=== PATIENT | female | born 1995 | race Caucasian/White ===

== ENCOUNTER 2020-11-10 09:20 | Inpatient (IN) ==
[2020-11-10] MEDS ORDERED: LACTATED RINGER'S 1,000 ML IV PRN (09:53)
[2020-11-10] MEDS ORDERED: OXYTOCIN 30 UNITS/500 ML BAG IV PRN ×2 (09:53→11:05)
--- NOTE | 2020-11-10 09:56 | History & Physical Report ---
Date of Service November 10, 2020 Assessment & Plan (1) Active labor at term: (2) Need for rhogam due to Rh negative mother: (3) Hypothyroidism: admit, iv, labs. will try to obtain epidural. pt aware that may not have time. suspect based on exam variables due to descent. bulging membranes. fhts categ 2. History of Present Illness Chief Complaint: labor Primary Care Provider: Jason Barrientos MD 25yo at 38+wks egfreddie presents to L&D in active labor. Contractions reguar and painful, breathing with them. No rom. No vb. +FM. PNC c/b 1. Rh neg, had rhogam, eval pp 2. hypothyroid on meds. PNL Rh neg, RI, GBS neg OBH: G1 GYNH: nl paps, no stds Allergies Allergy/AdvReac Type Severity Reaction Status Date / Time No Known Drug Allergies Allergy Verified 11/09/20 14:54 Home Medications Medication Instructions Recorded Confirmed Type [id number] fum-folic ac-om3 1 cap PO DAILY 12/13/19 11/10/20 History citalopram 10 mg tablet 30 mg PO DAILY tab 04/15/20 11/10/20 History breast pump #1 ea 10/21/20 11/09/20 Rx levothyroxine 100 mcg tablet 100 mcg PO DAILY #30 tab 11/05/20 11/10/20 Rx Patient History Medical History Abnormal serum thyroid stimulating hormone (TSH) level Anxiety Encounter for anatomic survey Hx of varicella Hypothyroidism No pertinent past medical history Vaginal bleeding Surgical History S/P wisdom tooth extraction Family History Mother Benign breast disease Hemiplegic migraine Grandmother (Maternal) Hypothyroidism Aunt Hypothyroidism Denies family history of Ovarian cancer Breast cancer Colorectal cancer Social History Smoking Status: Never smoker Hx Alcohol Use: No (social) Hx Substance Use: No Preferred Language: Malawian marital status: marital status details: Mp Roper (28) [phone] Current Living Situation: Spouse Current Living Situation Comment: lives with spouse, 1 dog current occupational status: employed 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 [employer] Feels Safe at Home: Yes Physical Exam Constitutional: WD/WN, vitals as above Gastrointestinal (Abdomen): soft gravid nt Musculoskeletal: no edema Neurologic: grossly normal Psychiatric: A+Ox3, euthymic affect Genitourinary: Manual OB Exam: + cervical dilation (bulging membranes) 7 cm, + cervical effacement 100% and + station + 1 OB Exam Monitor Tracing: + external FHT monitor used (140 mod variability), + external uterine monitor used (q2-4), + category II, + normal FHT variability and + variable decelerations Results & Data ([facility]) Vital Signs (Past 12 Hours) Vital Signs Temp Pulse Resp BP 11/10/20 09:29 97.9 F 74 20 124/76 Coding Level of Care Code None Diagnoses Active labor at term Need for rhogam due to Rh negative mother Z29.13 Hypothyroidism E03.9
[2020-11-10] MEDS ORDERED: fentaNYL citrate 100 MCG/2 ML VIAL ONE (10:14)
[2020-11-10] MEDS ORDERED: SODIUM CHLORIDE 0.9% INJ 10 ML VIAL ONE (10:14)
[2020-11-10] MEDS ORDERED: ePHEDrine sulfate 50 MG/ML AMP ONE (10:14)
[2020-11-10] MEDS ORDERED: BUPIVACAINE 0.25% 30 ML VIAL ONE (10:14)
[2020-11-10] MEDS ORDERED: fentaNYL 2MCG/ML ROPIVACAINE 1.25MG/ML 100 ML BAG EPI ONE (10:15)
[2020-11-10 10:22] LABS: Hematocrit (blood only) 38.9 % (37-47); Mean Corpuscular Hemoglobin 31.8 pg (25-34); Mean Corpuscular Volume 88.4 fL (80-100); Platelet Count 184 K/uL (130-400); RDW Coefficient of Variation 12.7 % (11.5-14.5); RDW Standard Deviation 40.5 fL (36.4-46.3); White Blood Count 11.88 K/uL (4.8-10.8)
[2020-11-10] MEDS ORDERED: LIDOCAINE HCL 1% 20 ML VIAL ONE (10:37)
[2020-11-10] MEDS ORDERED: ACETAMINOPHEN 325 MG TAB PO PRN (11:05)
[2020-11-10] MEDS ORDERED: oxyCODONE/ACETAMINOPHEN 5mg/325mg TAB PO PRN (11:05)
--- NOTE | 2020-11-10 11:16 | Delivery Summary ---
Vaginal Delivery Summary Date of Service November 10, 2020 The patient dilated to complete and pushed to deliver a viable female Apg ars 7 and 9 via over 2nd degree perineal laceration. Mouth and nose bulb suctioned at perineum. Loose nuchal cord x 1 reduced. Shoulders and body delivered with ease. was vigorous and crying at . Cord clamped at 30 seconds of life and infant to maternal abdomen where the cord was then doubly clamped and cut. Placenta delivered spontaneously and intact, three-vessel cord. Hemostasis achieved with dilute pitocin and uterine massage. Laceration repaired in usual fashion with 3-0 vicryl after 1% local lidocaine anesthesia. Cervix and sulci intact. EBL 300 cc. Mother and baby stable in recovery. Vaginal Delivery Summary and 2nd Degree LAC [facility] Vaginal Delivery Charge Vaginal Delivery Codes: 10808 global code for the antepartum, delivery, and post- Delivery Type Details: and 2nd Degree LAC
[2020-11-10] MEDS ORDERED: OXYTOCIN 20 UNITS in LACTATED RINGER'S 1,000 ML IV SCH (11:30)
[2020-11-10] MEDS ORDERED: CITALOPRAM 20 MG TAB PO ONE (11:30)
[2020-11-10] MEDS ORDERED: HYDROCORTISONE ACETATE 25 MG SUPP PR PRN (11:58)
[2020-11-10] MEDS ORDERED: BENZOCAINE 20% AER SPR 82.5 GM CAN EXT PRN (11:58)
[2020-11-10] MEDS ORDERED: SUPERCREAM 0.870% 15 GM JAR EXT PRN (11:58)
[2020-11-10] MEDS ORDERED: DIPHTHERIA/TETANUS/PERTUSSIS 0.5 ML SYR/VIAL IM ONE (11:58)
[2020-11-10] MEDS: IBUPROFEN 600 MG TAB PO PRN ×2 (14:12→21:14)
[2020-11-10] MEDS: DOCUSATE SODIUM 100 MG CAP PO SCH (21:13)
[2020-11-11 06:18] LABS: Hemoglobin 11.8 g/dL (12.0-16.0)
--- NOTE | 2020-11-11 06:55 | Obstetrical Progress Note ---
Date of Service <Tomer Liriano MD - Last Filed: 11/11/20 07:46> November 11, 2020 Assessment & Plan <Tomer Liriano MD - Last Filed: 11/11/20 07:46> (1) : A/P: Cele Benson is a 25 y/o female on PPD#1 following at 38+5 weeks. * Patient feels well today; eating well, voiding well, ambulating well * Pain well-controlled with ibuprofen 600mg q4h prn * Continue levothyroxine 100mcg PO qd * Continue citalopram 30mg PO qAM * PNL: Rh neg, RI, GBS neg, COVID neg * Baby is Rh neg - no need for further Rhogam doses * Routine care: OOB, ambulation, diet progression as tolerated * After discharge, will have six-week follow-up with Dr. New (2) Need for rhogam due to Rh negative mother: Subjective <Tomer Liriano MD - Last Filed: 11/11/20 07:46> Cele Benson is a 25 y/o female with hypothyroidism and anxiety on PPD#1 following at 38+5 weeks. She reports feeling well overall this morning. Mild abdominal cramping and 2/10 pain well managed on analgesics. Voiding well. Tolerating meals overnight without difficulty. Patient has been able to ambulate some. Has persistent lochia with some improvement this morning. Currently . Physical Exam <Tomer Liriano MD - Last Filed: 11/11/20 07:46> General: alert, oriented, no acute distress Cardiac: regular rate and rhythm, no murmurs appreciated Respiratory: lungs clear to auscultation bilaterally a/p, no wheezes/rales/rhon chi, no increased work of breathing, symmetrical chest rise, no respiratory distress Abdomen: soft, minimally tender, nondistended, bowel sounds present Uterus: uterine fundus firm, palpable at umbilicus Lower extremities: no lower extremity edema or swelling, no deep calf pain, Himanshu's negative bilaterally Results & Data ([facility]) <Tomer Liriano MD - Last Filed: 11/11/20 07:46> Vital Signs (Past 12 Hours) Vital Signs Temp Pulse Resp BP Pulse Ox 11/11/20 05:30 36.7 C 76 18 99/60 L 98 11/11/20 01:15 36.8 C 76 18 99/59 L 99 11/10/20 19:21 36.9 C 78 18 100/55 L 98 <Padmaja New MD, FACOG - Last Filed: 11/11/20 08:06> Co-Signing Physician Notes Resident Physician Supervision Note: I was present with Dr. George during the history and exam. I discussed the case with the resident and agree with the findings and plan as documented in the note. Any exceptions or clarifications are listed here: pt doing well, eating, voiding, ambulating without issue. bleeding ok. vss, ff 2 down nt, ext nt calves. ppd #1 s/p , breast, rh neg, baby rh neg, no rhogam needed, routine care. Documented By: Padmaja New MD, FACOG Resident Activity Tracking <Tomer Liriano MD - Last Filed: 11/11/20 07:46> Resident Involvement: Resident Care Provided Care Provided: OB Delivery
[2020-11-11] MEDS: LEVOTHYROXINE SODIUM 100 MCG TABLET PO SCH (07:12)
[2020-11-11] MEDS: IBUPROFEN 600 MG TAB PO PRN ×2 (07:13→17:57)
[2020-11-11] MEDS: DOCUSATE SODIUM 100 MG CAP PO SCH ×2 (09:29→20:13)
[2020-11-11] MEDS: CITALOPRAM 20 MG TAB PO SCH (09:29)
[2020-11-12] MEDS: IBUPROFEN 600 MG TAB PO PRN ×3 (00:04→12:03)
--- NOTE | 2020-11-12 06:21 | Obstetrical Progress Note ---
Date of Service <Tomer Liriano MD - Last Filed: 11/12/20 07:10> November 12, 2020 Assessment & Plan <Tomer Liriano MD - Last Filed: 11/12/20 07:10> (1) : A/P: Clee Benson is a 25 y/o female on PPD#2 following at 38+5 weeks. * Patient feels well today; eating well, voiding well, ambulating well * Pain well-controlled with ibuprofen 600mg q4h prn * Continue levothyroxine 100mcg PO qd * Continue citalopram 30mg PO qAM * PNL: Rh neg, RI, GBS neg, COVID neg * Baby is Rh neg - no need for further Rhogam doses * Routine care: OOB, ambulation, diet progression as tolerated * Interested in the progesterone-only pill for contraception, which she has previously been on * Discharge home today; discharge instructions reviewed * After discharge, will have six-week follow-up with Dr. New (2) Need for rhogam due to Rh negative mother: Subjective <Tomer Liriano MD - Last Filed: 11/12/20 07:10> Cele Benson is a 25 y/o female on PPD#2 following at 38+5 weeks. She reports feeling well overall this morning. Minimal abdominal cramping and 3/10 pain well managed on analgesics. Voiding well. Tolerating meals overnight witho ut difficulty. Patient has been able to ambulate some. Has persistent lochia with some improvement this morning. Currently . Review of Systems Denies fever or chills. Denies shortness of breath or cough. Denies chest pain. Denies breast pain. Denies dysuria. Denies leg pain or leg swelling. Denies headache or changes in vision. Physical Exam <Tomer Liriano MD - Last Filed: 11/12/20 07:10> General: alert, oriented, no acute distress Cardiac: regular rate and rhythm, no murmurs appreciated Respiratory: lungs clear to auscultation bilaterally a/p, no wheezes/rales/rhonchi, no increased work of breathing, symmetrical chest rise, no respiratory distress Abdomen: soft, minimally tender, nondistended, bowel sounds present Uterus: uterine fundus firm, palpable 3cm below umbilicus Lower extremities: no lower extremity edema or swelling, no deep calf pain, Himanshu's negative bilaterally Results & Data ([facility]) <Tomer Liriano MD - Last Filed: 11/12/20 07:10> Vital Signs (Past 12 Hours) Vital Signs Temp Pulse Resp BP Pulse Ox 11/11/20 23:55 36.5 C 66 16 114/70 99 11/11/20 19:43 36.7 C 68 16 98/63 L 98 <Yvette Parker MD - Last Filed: 11/12/20 07:14> Co-Signing Physician Notes Resident Physician Supervision Note: I interviewed and examined the patient. Discussed with Dr. Newberry and agree with findings and plan as documented in the note. Any exceptions or clarifications are listed here: [ ] Documented By: Yvette Parker MD, FACOG Resident Activity Tracking <Tomer Liriano MD - Last Filed: 11/12/20 07:10> Resident Involvement: Resident Care Provided Care Provided: OB Delivery
[2020-11-12] MEDS: LEVOTHYROXINE SODIUM 100 MCG TABLET PO SCH (07:43)
[2020-11-12] MEDS: DOCUSATE SODIUM 100 MG CAP PO SCH (08:14)
[2020-11-12] MEDS: CITALOPRAM 20 MG TAB PO SCH (08:14)
== END 2020-11-12 12:36 | disposition home or self-care (01) | DRG 807 ==
LOC: OPB 09:20 → 4S1 09:20 → 4S2 18:16

== ENCOUNTER 2024-04-29 05:33 | Inpatient (IN) ==
--- NOTE | 2024-04-25 13:47 | Anesthesiology Consultation ---
Date of Service April 25, 2024 Assessment & Plan (1) Encounter for pre-operative examination: Infectious disease screening: Per assessment on 04/25/24: No known recent infectious disease contacts or current infectious disease symptoms. Chart Review Chart Review: entry clerk initiated History Surgery Operation Date: 04/29/24 09:00 Proposed Procedures p Section (Delivery of the Baby Through Abdominal Incision - Eloisa Dominguez DO Height/Weight Height: 5 ft 6 in Weight: 95.708 kg Allergies Allergy/AdvReac Type Severity Reaction Status Date / Time No Known Drug Allergies Allergy Verified 04/25/24 13:10 Medications Home Medications Medication Instructions Recorded Confirmed Last Taken citalopram 10 mg tablet 10 mg PO QAM 04/15/20 04/25/24 04/12/24 prenat.vits,gayatri,qqf-xamj-iishx 1 tab PO QPM 11/10/20 04/25/24 04/11/24 folic acid 1 tab PO QPM 10/20/23 04/25/24 04/11/24 aspirin 81 mg tablet,delayed 81 mg PO QPM 01/05/24 04/25/24 04/11/24 release (Adult Low Dose Aspirin) ferrous sulfate 325 mg (65 mg 325 mg PO QAM 03/15/24 04/25/24 04/12/24 iron) tablet (FeroSul) breast pump #1 ea 04/19/24 04/24/24 Unknown citalopram 20 mg tablet 20 mg PO QAM 04/25/24 04/25/24 Unknown levothyroxine 112 mcg tablet 112 mcg PO QAM 04/25/24 04/25/24 Unknown Past Medical History Medical History Anxiety Hemiplegic migraine Hx, no current issues History of anemia History of asthma Hypothyroidism PCOS (polycystic ovarian syndrome) Past Family History Family History Mother Hemiplegic migraine Benign breast disease Grandmother (Maternal) Hypothyroidism Breast cancer Aunt Hypothyroidism Duodenal cancer Denies family history of Ovarian cancer Colorectal cancer Past Surgical History Surgical History S/P wisdom tooth extraction Social History Smoking Status: Never smoker Do You Dip or Chew Tobacco: No Hx Alcohol Use: Yes (not while , only socially) Hx Substance Use: No substance use type: does not use Lab Results Anesthesia Preop Results Results Anesthesia Widget: Hgb 10.5 g/dl (12.0-16.0) L 03/01/24 Hct 31.3 % (37.0-47.0) L 03/01/24 TSH 0.812 uIu/ml (0.300-4.500) 04/05/24 Free T4 0.72 ng/dl (0.61-1.60) 03/01/24 Urine Color Yellow 03/01/24 Urine Appearance Clear (Clear) 03/01/24 Urine pH 8.0 (4.5-7.5) H 03/01/24 Urine Specific Brethren 1.009 (1.000-1.030) 03/01/24 Urine Protein Negative (Negative) 03/01/24 Urine Glucose (UA) Negative (Negative) 03/01/24 Urine Ketones Negative (Negative) 03/01/24 Urine Blood Negative (Negative) 03/01/24 Urine Nitrite Negative (Negative) 03/01/24 Urine Bilirubin Negative (Negative) 03/01/24 Urine Urobilinogen Negative (Negative) 03/01/24 Urine Leukocyte Esterase Negative (Negative) 03/01/24 Antibody Screen NEGATIVE 03/01/24 Testing Laboratory Results Urine culture (03/01/24): no growth
[2024-04-29] MEDS: LACTATED RINGER'S 500 ML IV ONE (06:40)
--- NOTE | 2024-04-29 07:27 | History & Physical Report ---
Date of Service April 29, 2024 Assessment & Plan (1) Dichorionic diamniotic twin gestation: Plan: Reviewed delivery planning with patient: offered attempt at vaginal delivery vs primary section. Patient elected to undergo section. She was counseled on risks/benefits/alternatives of both section and vaginal delivery. Informed consent obtained. Admission and Anticipated Discharge Date Admission Date: April 29, 2024 History of Present Illness Chief Complaint: twins, IUGR Primary Care Provider: Jason Barrientos MD 29yo @ 37 11/05, here for delivery. 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 HARVINDER GUERRERO AND DR. SONJA MOSS ASSIST. Allergies Allergy/AdvReac Type Severity Reaction Status Date / Time No Known Drug Allergies Allergy Verified 04/25/24 13:10 Home Medications Medication Instructions Recorded Confirmed Type citalopram 10 mg tablet 10 mg PO QAM 04/15/20 04/29/24 History prenat.vits,gayatri,[id number] 1 tab PO QPM 11/10/20 04/29/24 History folic acid 1 tab PO QPM 10/20/23 04/29/24 History aspirin 81 mg tablet,delayed 81 mg PO QPM 01/05/24 04/29/24 History release (Adult Low Dose Aspirin) ferrous sulfate 325 mg (65 mg 325 mg PO QAM 03/15/24 04/29/24 History iron) tablet (FeroSul) breast pump #1 ea 04/19/24 04/24/24 Rx citalopram 20 mg tablet 20 mg PO QAM 04/25/24 04/29/24 History levothyroxine 112 mcg tablet 112 mcg PO QAM 04/25/24 04/29/24 History Patient History Medical History Anxiety Hemiplegic migraine Hx, no current issues History of anemia History of asthma Hypothyroidism PCOS (polycystic ovarian syndrome) Surgical History S/P wisdom tooth extraction Family History Mother Hemiplegic migraine Benign breast disease Grandmother (Maternal) Hypothyroidism Breast cancer Aunt Hypothyroidism Duodenal cancer Denies family history of Ovarian cancer Colorectal cancer Social History (Updated 03/29/24 @ 11:37 by Cristina Maurice RN) Smoking Status: Never smoker Second Hand Exposure: No; Do You Dip or Chew Tobacco: No; Tobacco Cessation Education Requested by Patient: No Hx Alcohol Use: Yes (not while , only socially) Hx Substance Use: No Preferred Language: Syriac Communication Ability: Effective Miller Supervisor Required: No Beliefs That Will Affect Care: None marital status: marital status details: Mp Benson (28) [phone] Current Living Situation: Spouse and Family Current Living Situation Comment: and daughter current occupational status: employed 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 [employer] Other Information That Helps Us Care for You: No Feels Safe at Home: Yes Safety Concerns: Feels Safe At This Time Assistive Devices: None Review of Systems All systems reviewed & are unremarkable except as noted in HPI & below Physical Exam Physical Exam: FHT cat 1 [place] Q 2-4 min Limited bedside US: baby A cephalic, B breech Constitutional: WD/WN, vitals as above Respiratory: normal respiratory effort, lungs clear to auscultation no respiratory distress Cardiovascular: Rate/Rhythm: regular rate and regular rhythm Gastrointestinal (Abdomen): Inspection/Auscultation: abdomen normal to inspect ion Percussion/Palpation: abdomen soft; abdomen nontender Gravid. No s/s chorio or abruption. Skin: no rashes, warm and dry Psychiatric: A+Ox3, euthymic affect Results & Data Vital Signs (Past 12 Hours) Vital Signs Temp Pulse Resp BP 04/29/24 05:50 36.8 C 92 H 18 109/67 04/29/24 05:44 92 H 109/67 Coding Level of Care Code None Diagnoses Dichorionic diamniotic twin gestation O30.049
[2024-04-29] MEDS ORDERED: LACTATED RINGER'S 1,000 ML IV SCH ×2 (07:45→11:58)
[2024-04-29] MEDS ORDERED: MoRPHine SULFATE PF 1 MG/ML 10 ML AMP/VIAL ONE (07:47)
[2024-04-29] MEDS ORDERED: fentaNYL citrate PF 100 MCG/2 ML VIAL ONE (07:47)
[2024-04-29 08:08] LABS: Basophils # (auto) 0.04 K/uL (0.00-0.20); Basophils % (auto) 0.6 %; Eosinophils # (auto) 0.04 K/uL (0.00-0.50); Eosinophils % (auto) 0.6 %; Hematocrit (blood only) 35.1 % (37.0-47.0); Hemoglobin 12.1 g/dl (12.0-16.0); Immature Granulocytes # (auto) 0.05 K/uL (0.01-0.20); Immature Granulocytes % (auto) 0.7 %; Lymphocytes % (auto) 32.4 %; Mean Corpuscular Hemoglobin 29.8 pg (25.0-34.0); Mean Corpuscular Hgb Conc 34.5 g/dL (32.0-36.0); Mean Corpuscular Volume 86.5 fL (80.0-100.0); Monocytes # (auto) 0.38 K/uL (0.11-0.59); Monocytes % (auto) 5.6 %; Neutrophils # (auto) 4.07 K/uL (1.40-6.50); Neutrophils % (auto) 60.1 %; Platelet Count 153 K/uL (130-400); RDW Coefficient of Variation 14.8 % (11.5-14.5); Red Blood Count 4.06 M/uL (4.20-5.40); White Blood Count 6.78 K/ul (4.8-10.8)
[2024-04-29] MEDS ORDERED: LACTATED RINGER'S 500 ML IV PRN (08:09)
[2024-04-29] MEDS ORDERED: NALBUPHINE HCL 5 MG in SYRINGE 0 ML IV PRN (08:09)
[2024-04-29] MEDS ORDERED: ACETAMINOPHEN 1,000 MG/100 ML VIAL IV PRN (08:09)
[2024-04-29] MEDS ORDERED: NALOXONE HCL 1 MG in SODIUM CHLORIDE 0.9% 1,000 ML IV PRN (08:09)
[2024-04-29] MEDS ORDERED: ePHEDrine sulfate 50 MG/ML AMP IV PRN (08:09)
[2024-04-29] MEDS ORDERED: NALOXONE HCL 0.08 MG in SYRINGE 1.8 ML IV PRN (08:09)
[2024-04-29] MEDS ORDERED: NALOXONE HCL 0.4 MG/1 ML VIAL/CARP IV PRN (08:09)
[2024-04-29] MEDS ORDERED: diphenhydrAMINE 50 MG/ML VIAL IV PRN (08:09)
[2024-04-29] MEDS ORDERED: HYDROmorphone INJ 0.5 MG/0.5 ML SYR IV PRN (08:09)
[2024-04-29] MEDS ORDERED: ONDANSETRON INJ 2 MG/ML 2 ML VIAL IV PRN (08:09)
[2024-04-29] MEDS ORDERED: PROMETHAZINE HCL 6.25 MG in SODIUM CHLORIDE 0.9% 50 ML IV PRN (08:09)
[2024-04-29] MEDS ORDERED: DC INTRASPINAL MORPHINE SCH (08:15)
[2024-04-29] MEDS: CITRIC ACID/SODIUM CITRATE 15 ML UDC PO SCH (08:15)
[2024-04-29] MEDS ORDERED: NO NARCOTICS OR SEDATIVES SCH (08:15)
[2024-04-29] MEDS: ceFAZolin 2000MG 2,000 MG/15 ML SYR IV SCH (08:18)
[2024-04-29 09:27] LABS: Base Excess Cord Venous Blood 0.3 mEq/L (-7.7-1.9); Cord Venous Blood HCO3 23 mmol/L (18.4-26.8); Cord Venous Blood PCO2 32 mmHg (30.4-57.2); Cord Venous Blood PO2 27 mmHg (14.1-43.3); Cord Venous Blood pH 7.47 (7.20-7.44); O2 Saturation Cord Venous Bld 62.2 % (<68)
[2024-04-29 09:28] LABS: Base Excess Cord Venous Blood 0.1 mEq/L (-7.7-1.9); Cord Venous Blood HCO3 24 mmol/L (18.4-26.8); Cord Venous Blood PCO2 34 mmHg (30.4-57.2); Cord Venous Blood PO2 < 20 mmHg (14.1-43.3); Cord Venous Blood pH 7.45 (7.20-7.44); O2 Saturation Cord Venous Bld < 60.0 % (<68)
[2024-04-29 09:32] LABS: Base Excess Cord Arterial Bld -3.3 mEq/L (-9-1.8); CO2 Cord Arterial Blood 40 mmHg (39.1-73.5); HCO3 Cord Arterial Blood 22 mmol/L (19.7-28.5); Oxygen Sat Cord Arterial Blood < 60.0 % (<60); PO2 Cord Arterial Blood < 20 mmHg (4.1-31.7); pH Cord Arterial Blood 7.35 (7.1-7.38)
--- NOTE | 2024-04-29 09:49 | Operative Report ---
Post Operative Report Pre & Post Diagnosis Operation Date: 04/29/24 07:30 Pre-Op Diagnosis: Dichorionic/Dichorionic Twins;IUGR;Desires Caesarean Section Post-Op Diagnosis: Same; Delivery of live male ( Twin A ) at 0842 and live male (Twin B ) at 0844 I identified the patient and participated in the time-out.: Yes Procedure Operation Date: 04/29/24 07:30 Actual Procedures p Primary Low Transverse Section (Delivery of the Baby Through Abdominal Incision) - Eloisa Dominguez DO Surgeon Eloisa Dominguez DO Despatching And Receiving Clerk Alayna Villalobos MD Quantitative Blood Loss (QBL) 672 Findings Consistent with Post-Op Diagnosis Viable male twins, both babies with 8/8 APGARS, weights pending please see nursery records. Specimens placenta, cord blood, cord gas. Baby A - one clip Baby B - two clips Drains ewing clear yellow Anesthesia Type Spinal Complications none Disposition Accompanied Patient To Recovery: Yes Disposition: Recovery Room Indications 29yo @ 37 11/05, di/di twins, IUGR, request for section Description of Procedure The patient was seen in her labor and delivery room, risks benefits and alternatives to surgery were reviewed. Informed consent obtained. Questions were answered. She was taken to the operating room, spinal anesthesia was administered. She was then prepared and draped in the usual sterile fashion in the supine position with a leftward tilt. Timeout was confirmed. A Pfannenstiel skin incision was made with a scalpel, and carried through to the underlying layer of fascia. Fascia was nicked at midline, and this incision was extended bilaterally. The superior aspect of the fascial incision was grasped with Mayra clamps x2, elevated off the underlying rectus abdominis muscles, and dissected sharply and bluntly. In similar fashion, the inferior aspect of the fascial incision was dissected. The rectus abdominis muscles were , and the peritoneum was entered bluntly digitally. This was extended bilaterally. The bladder flap was taken down carefully using Metzenbaum scissors. Using a new scalpel, a low transverse uterine incision was created. Clear amniotic fluid noted. Infant A was delivered from a cephalic presentation. Nuchal x 1, easily reduced. The head delivered, followed by shoulders and body. Spontaneous cry on the field. The cord was doubly clamped and cut, and the was handed off to the waiting asp net software developer. A segment was retained for cord gases. Cord blood was obtained. B was then delivered from a cephalic presentation, meconium-stained amniotic fluid. Nuchal x 1, easily reduced. The head delivered, followed by shoulders and body. Spontaneous cry on the field. The cord was doubly clamped and cut, and the infant was handed off to the waiting asp net software developer. A segment was retained for cord gases. Cord blood was obtained. The placenta was delivered spontaneously intact. The uterus was exteriorized, and cleared of all clots and debris. The hysterotomy incision was reapproximated using 0 Vicryl in a running locked stitch. A second layer of the same suture was used to imbricate the incision. Posterior uterus was evaluated and normal. The uterus was returned to the abdomen, and gutters were cleared of clots and debris. Excellent hemostasis was observed. The fascial incision was reapproximated using 0 Vicryl in a running stitch. The subcutaneous tissue was irrigated, and reapproximated using 2-0 plain gut in a running stitch. The skin was reapproximated using 4-0 Vicryl in a running subcuticular stitch. Steri-Strips and a bandage were applied. The patient tolerated the procedure well, and will be taken to the recovery area in stable and good condition. I attest to the content of the Intraoperative Record and any orders documented therein. Any exceptions are noted below. OB Procedure Charges 72598
[2024-04-29] MEDS ORDERED: PHENYLEPHRINE HCL 25 MG/250 ML NSS IV ONE (10:05)
[2024-04-29] MEDS ORDERED: KETOROLAC 30 MG/ML VIAL ONE (10:05)
[2024-04-29] MEDS ORDERED: ONDANSETRON INJ 2 MG/ML 2 ML VIAL ONE (10:05)
[2024-04-29] MEDS ORDERED: OXYTOCIN 10 UNITS/ML VIAL ONE (10:05)
--- NOTE | 2024-04-29 11:24 | Anesthesiology Progress Note ---
Date of Service April 29, 2024 Anesthesia Post Procedure Vital Signs Vital Signs: Temp Pulse Resp BP Pulse Ox 04/29/24 11:19 100 04/29/24 11:19 61 04/29/24 11:14 100 04/29/24 11:14 66 04/29/24 11:14 107/63 04/29/24 11:09 100 04/29/24 11:09 65 04/29/24 11:04 100 04/29/24 11:04 63 04/29/24 10:59 100 04/29/24 10:59 64 04/29/24 10:54 100 04/29/24 10:54 58 L 04/29/24 10:54 63 04/29/24 10:54 98/61 L 04/29/24 10:49 100 04/29/24 10:49 70 04/29/24 10:44 100 04/29/24 10:44 61 04/29/24 10:44 65 04/29/24 10:44 99/58 L 04/29/24 10:39 99 04/29/24 10:39 70 04/29/24 10:35 97.9 F 64 16 97/56 L 99 04/29/24 10:34 99 04/29/24 10:34 64 04/29/24 10:34 97/56 L 04/29/24 10:29 100 04/29/24 10:29 63 04/29/24 10:25 97.7 F 73 16 101/56 L 98 04/29/24 10:24 99 04/29/24 10:24 74 04/29/24 10:24 67 04/29/24 10:24 101/56 L 04/29/24 10:19 98 04/29/24 10:19 75 04/29/24 10:15 72 16 103/50 L 98 04/29/24 10:14 99 04/29/24 10:14 69 04/29/24 10:14 67 04/29/24 10:14 103/50 L 04/29/24 10:09 100 04/29/24 10:09 75 04/29/24 10:05 70 16 109/49 L 97 04/29/24 10:04 100 04/29/24 10:04 73 04/29/24 10:04 100/49 L 04/29/24 09:59 100 04/29/24 09:59 69 04/29/24 09:55 97.9 F 75 16 105/53 L 97 04/29/24 09:54 100 04/29/24 09:54 81 04/29/24 09:54 73 04/29/24 09:54 105/53 L 04/29/24 09:49 100 04/29/24 09:49 68 04/29/24 09:45 80 16 108/61 98 04/29/24 09:44 100 04/29/24 09:44 74 04/29/24 09:44 65 04/29/24 09:44 108/61 04/29/24 09:39 100 04/29/24 09:39 72 04/29/24 09:34 100 04/29/24 09:34 65 04/29/24 09:34 108/59 L 04/29/24 08:35 97.7 F 65 16 108/59 L 98 04/29/24 07:53 72 04/29/24 07:53 120/70 04/29/24 05:50 98.2 F 92 H 18 109/67 04/29/24 05:44 92 H 109/67 Transfer of Care Handoff Completed per policy Notes Mental Status: alert / awake / arousable and participated in evaluation Patient Amnestic to Procedure: Yes Nausea / Vomiting: adequately controlled Pain: adequately controlled Airway Patency, RR, SpO2: stable & adequate BP & HR: stable & adequate Hydration State: stable & adequate Neuraxial Anesthesia: was administered and sensory block is resolving Anesthetic Complications: no major complications apparent and Pt Satisfied with anesthetic care
[2024-04-29] MEDS ORDERED: MAGNESIUM HYDROXIDE SUSP 30 ML UDC PO PRN (11:58)
[2024-04-29] MEDS ORDERED: SENNA 8.6 MG TAB PO PRN (11:58)
[2024-04-29] MEDS ORDERED: HYDROCORTISONE ACETATE 25 MG SUPP PR PRN (11:58)
[2024-04-29] MEDS ORDERED: BENZOCAINE 20% SPRY 85 APPLN/85 GM CAN EXT PRN (11:58)
[2024-04-29] MEDS: MoRPHine SULFATE PF 1 MG/ML 10 ML AMP/VIAL INT SPINAL ONE (12:02)
[2024-04-29] MEDS: SODIUM CHLORIDE 0.9% 1,000 ML IV SCH (12:03)
[2024-04-29] MEDS: SIMETHICONE 80 MG CHEW PO SCH (12:10)
[2024-04-29] MEDS: DIPHTHER/TETAN/PERTUS Vaccine (Tdap, Adol/Adult) 0.5mL IM ONE (12:11)
[2024-04-29] MEDS: OXYTOCIN 30 UNITS/LR 1,003 ML IV SCH (12:53)
[2024-04-29] MEDS: KETOROLAC 30 MG/ML VIAL IV PRN (13:56)
[2024-04-29] MEDS: DOCUSATE SODIUM 100 MG CAP PO SCH (20:54)
[2024-04-30] MEDS ORDERED: PROMETHAZINE HCL 25 MG in SODIUM CHLORIDE 0.9% 50 ML IV PRN (02:10)
[2024-04-30] MEDS ORDERED: diphenhydrAMINE Capsule 25 MG CAP PO PRN (02:10)
[2024-04-30] MEDS ORDERED: ONDANSETRON INJ 2 MG/ML 2 ML VIAL IV PRN (02:10)
[2024-04-30] MEDS ORDERED: KETOROLAC 30 MG/ML VIAL IV PRN (02:10)
[2024-04-30] MEDS ORDERED: diphenhydrAMINE 50 MG/ML VIAL IV PRN (02:10)
[2024-04-30] MEDS: IBUPROFEN 600 MG TAB PO PRN (02:49)
[2024-04-30] MEDS: LEVOTHYROXINE SODIUM 112 MCG TABLET PO SCH (06:10)
[2024-04-30 06:32] LABS: Basophils # (auto) 0.02 K/uL (0.00-0.20); Basophils % (auto) 0.2 %; Eosinophils # (auto) 0.03 K/uL (0.00-0.50); Eosinophils % (auto) 0.3 %; Hematocrit (blood only) 30.4 % (37.0-47.0); Hemoglobin 10.5 g/dl (12.0-16.0); Immature Granulocytes # (auto) 0.05 K/uL (0.01-0.20); Immature Granulocytes % (auto) 0.5 %; Lymphocytes # (auto) 0.75 K/uL (1.20-3.40); Mean Corpuscular Hemoglobin 30.1 pg (25.0-34.0); Mean Corpuscular Hgb Conc 34.5 g/dL (32.0-36.0); Mean Corpuscular Volume 87.1 fL (80.0-100.0); Mean Platelet Volume 11.4 fL (9.4-12.4); Monocytes # (auto) 0.52 K/uL (0.11-0.59); Monocytes % (auto) 4.8 %; Neutrophils # (auto) 9.42 K/uL (1.40-6.50); Neutrophils % (auto) 87.2 %; Platelet Count 115 K/uL (130-400); RDW Standard Deviation 47.6 fL (36.4-46.3); Red Blood Count 3.49 M/uL (4.20-5.40); White Blood Count 10.79 K/ul (4.8-10.8)
--- NOTE | 2024-04-30 07:24 | Obstetrical Progress Note ---
Date of Service April 30, 2024 Subjective Ambulation: ambulating normally Voiding: no voiding problems (already went, catheter out @ 2am) Passing Gas:: Yes Diet Tolerance:: regular diet Lochia:: Small Feeding Type:: breast feeding Physical Exam Constitutional WD/WN, vitals as above Eyes PERRL, conjunctivae normal, anicteric sclerae Neck normal visual inspection Respiratory normal respiratory effort and able to speak in complete sentences; no respirator y distress and no labored breathing Cardiovascular Rate/Rhythm: regular rate and regular rhythm Extremities: no edema Chest (Breasts) Chest: normal inspection of chest Gastrointestinal (Abdomen) Inspection/Auscultation: abdomen normal to inspection Soft, postgravid dressing removed, c/d/i Psychiatric A+Ox3, euthymic affect Genitourinary OB Exam Abdomen: + fundal height Fundus: + firm and + relation to umbilicus (fundus just below umbilicus); not tender Results & Data Vital Signs (Past 12 Hours) Vital Signs Temp Pulse Resp BP Pulse Ox O2 Del Method 04/30/24 03:08 97.9 F 78 20 91/56 L 100 Room Air 04/30/24 01:45 20 99 04/30/24 00:45 20 97 04/29/24 23:45 20 98 04/29/24 23:00 20 98 04/29/24 23:00 98.8 F 73 20 101/58 L 98 Room Air 04/29/24 22:45 20 98 04/29/24 21:45 20 100 04/29/24 20:45 20 100 04/29/24 19:45 20 100 04/29/24 19:45 98.8 F 76 20 100/58 L 100 Room Air
[2024-04-30] MEDS: PRENATAL VITAMIN 1 TAB PO SCH (08:14)
[2024-04-30] MEDS: FERROUS SULFATE 325 MG TAB PO SCH (08:14)
[2024-04-30] MEDS: oxyCODONE/ACETAMINOPHEN 5mg/325mg TAB PO PRN (08:14)
[2024-04-30] MEDS: CITALOPRAM 20 MG TAB PO SCH (08:18)
[2024-04-30] MEDS ORDERED: CITALOPRAM 20 MG TAB PO SCH (09:00)
[2024-04-30] MEDS: bisacodyL 5 MG TABEC PO SCH (20:14)
[2024-05-01 06:28] LABS: Hematocrit (blood only) 25.1 % (37.0-47.0); Hemoglobin 8.3 g/dl (12.0-16.0)
--- NOTE | 2024-05-01 07:25 | Obstetrical Progress Note ---
Date of Service May 01, 2024 Assessment & Plan (1) Encounter for care and examination after delivery: Satisfactory postop and progress. She is unsure about going home today or tomorrow but I will send scripts for her pain meds today. Subjective Ambulation: ambulating normally Voiding: no voiding problems Passing Gas:: Yes Diet Tolerance:: regular diet Feeding Type:: breast feeding doing well - pain meds working. twin at [facility] is also doing well and should be discharged either today or tomorrow morning. Review of Systems All systems reviewed & are unremarkable except as noted in HPI & below Physical Exam Constitutional WD/WN, vitals as above Gastrointestinal (Abdomen) Inspection/Auscultation: + abdominal surgical incision (dry and intact- no erythema) Psychiatric A+Ox3, euthymic affect Results & Data Vital Signs (Past 12 Hours) Vital Signs Temp Pulse Resp BP Pulse Ox O2 Del Method 05/01/24 00:05 99.0 F 83 18 97/58 L 98 Room Air 04/30/24 20:05 98.1 F 90 18 98/59 L 97 Room Air
[2024-05-01] MEDS ORDERED: bisacodyL 10 MG SUPP PR PRN (09:33)
--- NOTE | 2024-05-03 01:25 | Discharge Summary ---
Date of Service May 03, 2024 Admission HPI Per Admitting Provider 29yo @ 37 11[birth year], here for delivery. 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 ELOISA DOMINGUEZ AND DR. SONJA MOSS ASSIST. Admission Exam (Per Admitting) Constitutional WD/WN, vitals as above Respiratory normal respiratory effort, lungs clear to auscultation no respiratory distress Cardiovascular Rate/Rhythm: regular rate and regular rhythm Gastrointestinal (Abdomen) Inspection/Auscultation: abdomen normal to inspection Percussion/Palpation: abdomen soft; abdomen nontender Skin no rashes, warm and dry Psychiatric A+Ox3, euthymic affect Discharge Data Consultations 04/29/24 07:45 Consult Anesthesiology Stat Procedures Performed Operation Date: 04/29/24 07:30 Actual Procedures p Section (Delivery of the Baby Through Abdominal Incision(Bilateral) - Eloisa Dominguez, Hospital Course (1) Encounter for care and examination after delivery: Satisfactory postop and progress. She is unsure about going home today or tomorrow but I will send scripts for her pain meds today. Coding Level of Care Code None Diagnoses Encounter for care and examination after delivery Z39.2
== END 2024-05-01 16:30 | disposition home or self-care (01) | DRG 788 ==
LOC: 4S1 05:33 → EDSTATUS 09:00 → 4E2 13:00
DX: Z67.91 Unspecified blood type, Rh negative; Z79.899 Other long term (current) drug therapy; O77.0 Labor and delivery complicated by meconium in amniotic fluid; Z28.310 Unvaccinated for COVID-19; Z79.890 Hormone replacement therapy; Z3A.37 37 weeks gestation of pregnancy; E03.9 Hypothyroidism, unspecified; O36.5931 Maternal care for other known or suspected poor fetal growth, third trimester, fetus 1; O69.81X2 Labor and delivery complicated by cord around neck, without compression, fetus 2; O30.043 Twin pregnancy, dichorionic/diamniotic, third trimester; O99.284 Endocrine, nutritional and metabolic diseases complicating childbirth; Z37.2 Twins, both liveborn; Z79.82 Long term (current) use of aspirin; O35.HXX1 Maternal care for other (suspected) fetal abnormality and damage, fetal lower extremities anomalies, fetus 1; O69.81X1 Labor and delivery complicated by cord around neck, without compression, fetus 1